=== PATIENT | female | born 1935 | race Caucasian/White ===

== ENCOUNTER 2018-09-13 09:02 | Inpatient (IN) | payer MEDICARE, BC ==
[2018-09-06 15:45] LABS: BASOPHILS # (AUTO) 0.1 X10'3 (0-0.2); BASOPHILS % (AUTO) 0.8 % (0-1); EOSINOPHILS # (AUTO) 0.3 X10'3 (0-0.9); EOSINOPHILS % (AUTO) 4.1 % (0-6); LYMPHOCYTES # (AUTO) 1.6 X10'3 (1.1-4.8); LYMPHOCYTES % (AUTO) 23.7 % (21-51); MEAN CORPUSCULAR HEMOGLOBIN 27.8 PG (27.0-31.0); MEAN CORPUSCULAR VOLUME 84.1 FL (78-98); MEAN PLATELET VOLUME 9.2 FL (7.4-10.4); MONOCYTES # (AUTO) 0.8 X10'3 (0-0.9); NEUTROPHILS # (AUTO) 3.9 X10'3 (1.8-7.7); NEUTROPHILS % (AUTO) 59.4 % (42-75); PRE OP HEMATOCRIT 24.6 % (35.0-45.0); PRE OP PLATELET COUNT 295 X10'3 (140-440); RED BLOOD COUNT 2.93 X10'6 (4.20-5.60)
[2018-09-06 15:50] LABS: PRE OP HEMOGLOBIN 8.1 g/dL (12.0-16.0)
[2018-09-06 15:52] LABS: CLARITY,URINE CLEAR (Clear); COLOR,URINE YELLOW (Yellow); GLUCOSE, URINE NEGATIVE (Neg); KETONES,URINE NEGATIVE (Neg); LEUKOCYTE ESTERASE ,URINE NEGATIVE (Neg); NITRITES, URINE NEGATIVE (Neg); OCCULT BLOOD,URINE NEGATIVE (Neg); PH,URINE 5.5 (4.8-8.0); PROTEIN,URINE NEGATIVE (Neg); UROBILINOGEN,URINE 0.2 E.U/dL (0.2-1.0)
[2018-09-06 15:55] LABS: UA COLLECTION TYPE CLN CATCH MIDSTREAM
[2018-09-06 15:59] LABS: ALBUMIN 3.2 G/DL (3.4-5.0); ALBUMIN/GLOBULIN RATIO 0.8 (1.1-1.5); ALKALINE PHOSPHATASE 138 IU/L (46-116); BLOOD UREA NITROGEN 32 MG/DL (7-18); BUN/CREATININE RATIO 34.4 (6.6-38.0); CALCIUM 9.2 MG/DL (8.5-10.1); CHLORIDE 96 MMOL/L (99-107); CREATININE 0.93 MG/DL (0.40-0.90); PRE OP ALT 27 U/L (30-65); PRE OP ANION GAP 5 (8-16); PRE OP AST 22 U/L (10-37); PRE OP BILIRUB, TOTAL 0.2 MG/DL (0.0-1.0); PRE OP GLUCOSE 107 MG/DL (70-104); PRE OP POTASSIUM 4.5 MMOL/L (3.4-5.1); TOTAL CARBON DIOXIDE 29.5 MMOL/L (24-32); TOTAL PROTEIN 7.2 G/DL (6.4-8.2); eGFR 58 ML/MIN
[2018-09-06 16:10] LABS: PRE OP SODIUM 130 MMOL/L (135-145)
[2018-09-06 16:11] LABS: PRE OP INR 1.1 INR; PRE OP PROTIME 11.3 SECONDS (9.0-12.0)
[~2018-09-13] VITALS: Ht 147.3 cm; Wt 55.8 kg
[2018-09-13] VITALS (18 sets, daily range): BP systolic 114–161; BP diastolic 44–95
[~2018-09-13 09:02] MED LIST: ALBU2.5V12 NEB; ALBU8.5H8 IH; APIX5TAB3 PO; ATOR40TA PO; BUDE90AE IH; BUM1T PO; BUSP5TAB3 PO; CALC-216 PO; CARV6.253 PO; CLA10T PO; COLE1TAB2 PO; DOCUMENT DATE & TIME OF BETA-BLOCKER PO ONE; ESOM40CA PO; LISI40TA4 PO; MULT1TAB74 PO; POTA20TA19 PO; TRAM50TA2 PO; VIT1CAPS9 PO; VITA100D6 PO; VITC500T PO; ZOLP10TA5 PO; albuterol 2.5 MG/3 ML nebule NEB ONE; cefotetan 2gm/isosm dext IVPB 50 ML IV ONE; famotidine 20mg tablet PO ONE
[2018-09-13] MEDS: ringers solution, lacted 1,000 ML IV SCH ×2 (09:15→14:32)
[2018-09-13 09:36] LABS: ISTAT CREATININE 0.9 mg/dL (0.6-1.1); ISTAT HGB 8.8 g/dl (12.0-16.0); ISTAT IONIZED CALCIUM 1.22 mmol/L (1.03-1.32); ISTAT K 4.5 mmol/L (3.5-5.1); POC BUN/CREATININE RATIO 26.7 (6.6-38.0)
[2018-09-13] MEDS ORDERED: BUPIVAcaine/PF 2.5mg/ml (0.25%) 10ml vial ONE (10:46)
[2018-09-13] MEDS ORDERED: fentaNYL/PF 50MCG/1 ML 2ML syringe ONE ×2 (11:02)
[2018-09-13] MEDS ORDERED: midazolam 2 mg/2 ml injection ONE (11:02)
[2018-09-13] MEDS ORDERED: ringers solution, lacted 1,000 ML IV SCH (11:46)
[2018-09-13] MEDS ORDERED: proCHLORperazine 10 MG/2 ml inj IV PRN (11:50)
[2018-09-13] MEDS ORDERED: ondansetron/PF 4mg/2ml inj IV PRN (11:50)
[2018-09-13] MEDS ORDERED: meperidine/PF 25mg/ml syringe IV PRN ×2 (11:50)
[2018-09-13] MEDS ORDERED: morphine 4 MG/ML inj SYRINge IV PRN ×2 (11:50)
[2018-09-13] MEDS ORDERED: neostigmine methylsulfate 1 MG/ML 10ml vial ONE (11:56)
[2018-09-13] MEDS ORDERED: rocuronium 10mg/ml inj IV ONE (11:56)
[2018-09-13] MEDS ORDERED: propofol inj 20 ML IV ONE (11:57)
[2018-09-13] MEDS ORDERED: glycopyrrolate 0.2mg/ml inj ONE (11:57)
[2018-09-13] MEDS: meperidine/PF 25mg/ml syringe IV PRN ×3 (12:16→12:50)
[2018-09-13] MEDS ORDERED: acetaminophen 1,000mg/100ml IV 100 ML IV ONE (12:20)
--- NOTE | 2018-09-13 12:20 | NUR ---
Received from OR via BED , accompanied by Anesthesiologist DR CALVILLO and report given by Anesthesiolgist. PATIENT WAKING UP, C/O PAIN SEE EMAR, V/S WNL, NEUROVASCULAR CHECKS INTACT, 20G PIV RUE, SCD ON, 4 BANDAIDS TO LAP SIGHTS OF ABDOMEN CDI.
[2018-09-13] MEDS ORDERED: albuterol 2.5 MG/3 ML nebule NEB PRN (13:00)
--- NOTE | 2018-09-13 13:20 | NUR ---
PATIENT A&OX4, C/O PAIN AT TIMES SEE EMAR- CURRENTLY SAYS IT IS WELL CONTROLLED, V/S WNL, NEUROVASCULAR CHECKS INTACT, 20G PIV RUE, SCD ON, 4 BANDAIDS TO LAP SIGHTS OF ABDOMEN CDI. PATIENT TAKEN TO SURGICAL WITH ALL BELONGINGS AND HOOKED UP TO MONITORS IN ROOM AND REPORT GIVEN TO RN WHO HAS TAKEN OVER PATIENT CARE.
[2018-09-13] MEDS: normal saline 1000ml 1,000 ML IV SCH (14:37)
[2018-09-13] MEDS: HYDROcodone/acetaminophen 10/325mg tab PO PRN (16:04)
[2018-09-13] MEDS: busPIRone 5mg tablet PO SCH ×2 (17:00→21:40)
[2018-09-13] MEDS: traMADol 50MG tablet PO SCH ×2 (17:00→21:41)
[2018-09-13] MEDS: apixaban 5mg tablet PO SCH (19:41)
[2018-09-13] MEDS: COLESTIPOL PO SCH (19:42)
[2018-09-13] MEDS: calcium carbonate/vitamin D3 tablet PO SCH (19:42)
[2018-09-13] MEDS: ascorbic acid 500mg tablet PO SCH (19:42)
[2018-09-13] MEDS: carvedilol 6.25mg tablet PO SCH (19:43)
[2018-09-13] MEDS: albuterol 2.5 MG/3 ML nebule NEB SCH (20:25)
[2018-09-13] MEDS: budesonide 0.5mg/2ml UD nebule IH SCH (20:25)
[2018-09-13] MEDS: beta-carotene(A) w/C & E + minerals tab PO SCH (21:38)
[2018-09-13] MEDS: potassium chloride 10mEq ER tablet PO SCH (21:40)
[2018-09-13] MEDS: atorvastatin 20mg tablet PO SCH (21:40)
[2018-09-13] MEDS: bumetanide 1mg tablet PO SCH (21:53)
--- NOTE | 2018-09-13 22:00 | NUR ---
Dr. Bernard called. pt c/o of pain and retentions. pt tried using BSC and couldn't go. pt walked and then tried using the private bathroom due to "private bladder." bladder scanned pt with volume 390mL. orders given. will continue to monitor.
[2018-09-14] VITALS: BP 106/43
[2018-09-14] MEDS: HYDROcodone/acetaminophen 10/325mg tab PO PRN ×3 (02:50→17:33)
[2018-09-14] MEDS: ondansetron/PF 4mg/2ml inj IV PRN (02:52)
--- NOTE | 2018-09-14 05:23 | NUR ---
bladder scan showed 238mL. pt does not complain of any discomfort. will continue to monitor.
--- NOTE | 2018-09-14 06:00 | NUR ---
pct got 600 mL on the bladder scanner after trying to get the pt to void on the BSC. straight cath pt and got 200mL. did a bladder scan after the straight cath and there was 100mL left in the bladder
--- NOTE | 2018-09-14 06:30 | NUR ---
Problems reprioritized. Patient report given, questions answered & plan of care reviewed with SERAFIN diaz.
[2018-09-14 07:00] VITALS: BP_SYST 110; BP_SYST 123; BP_DIAS 50; BP_DIAS 71
[2018-09-14] MEDS: budesonide 0.5mg/2ml UD nebule IH SCH ×2 (07:27→20:11)
[2018-09-14] MEDS: albuterol 2.5 MG/3 ML nebule NEB SCH ×2 (07:27→20:11)
[2018-09-14] MEDS: vitamin E 400 unit capsule PO SCH (08:00)
[2018-09-14] MEDS: beta-carotene(A) w/C & E + minerals tab PO SCH ×2 (08:00→19:57)
[2018-09-14] MEDS: COLESTIPOL PO SCH ×2 (08:00→20:00)
[2018-09-14] MEDS: lisinopril 20mg tablet PO SCH (08:00)
[2018-09-14] MEDS: apixaban 5mg tablet PO SCH ×2 (08:25→19:57)
[2018-09-14] MEDS: pantoprazole 40mg Tablet.DR PO SCH (08:26)
[2018-09-14] MEDS: traMADol 50MG tablet PO SCH ×4 (08:26→21:00)
[2018-09-14] MEDS: ascorbic acid 500mg tablet PO SCH ×2 (08:26→19:57)
[2018-09-14] MEDS: calcium carbonate/vitamin D3 tablet PO SCH ×2 (08:26→19:57)
[2018-09-14] MEDS: bumetanide 1mg tablet PO SCH ×3 (08:26→20:39)
[2018-09-14] MEDS: carvedilol 6.25mg tablet PO SCH ×2 (08:26→19:57)
[2018-09-14] MEDS: multivitamins, therapeutics tablet PO SCH (08:26)
[2018-09-14] MEDS: loratadine 10mg tablet PO SCH (08:26)
[2018-09-14] MEDS: potassium chloride 10mEq ER tablet PO SCH ×3 (08:26→20:35)
[2018-09-14] MEDS: busPIRone 5mg tablet PO SCH ×4 (08:26→20:35)
[2018-09-14] MEDS: normal saline 1000ml 1,000 ML IV SCH (08:35)
[2018-09-14 11:00] VITALS: BP 120/60
--- NOTE | 2018-09-14 17:12 | NUR ---
SPOKE WITH DR AVERY RE: PT UNABLE TO VOID TODAY, BLADDER SCAN SHOWS 125 IN, TRIED 2 DIFFERENT SCANNERS PT STATES THAT SHE BELIEVES THAT IT IS WRONG. PT ALSO UNABLE TO PASS GAS AT THIS TIME, VERY DISTENDED AND PAINFUL. GOT ORDER TO CHANGE IV FLUIDS AND STRAIGHT CATH > 300.
[2018-09-14 18:00] VITALS: BP 120/62
--- NOTE | 2018-09-14 18:14 | NUR ---
Problems reprioritized. Patient report given, questions answered & plan of care reviewed with NATE SOUSA.
--- NOTE | 2018-09-14 18:35 | NUR ---
Patient in room [facility]. I have received report from Hanna SOUSA and had the opportunity to ask questions and assume patient care.
[2018-09-14] MEDS: potassium CL 20mEq in D5-1/2NS 1,000 ML IV SCH (19:33)
[2018-09-14] MEDS: atorvastatin 20mg tablet PO SCH (20:35)
[2018-09-14] MEDS: zolpidem 5mg tablet PO PRN (20:40)
[2018-09-15] VITALS: BP 128/50
[2018-09-15] MEDS: HYDROcodone/acetaminophen 10/325mg tab PO PRN ×2 (03:47→10:04)
--- NOTE | 2018-09-15 05:59 | NUR ---
Problems reprioritized. Patient report given, questions answered & plan of care reviewed with CINTIA RN.
--- NOTE | 2018-09-15 06:20 | NUR ---
Patient in room [facility]. I have received report from MERRY Vazquez and had the opportunity to ask questions and assume patient care.
[2018-09-15] MEDS: potassium CL 20mEq in D5-1/2NS 1,000 ML IV SCH ×2 (06:52→07:40)
--- NOTE | 2018-09-15 06:53 | NUR ---
Med reassessments not completed on 09/14 day shift & 09/14 noc shift, therefore documented not done.
[2018-09-15 07:00] VITALS: BP 108/56
[2018-09-15] MEDS: albuterol 2.5 MG/3 ML nebule NEB SCH ×2 (07:30→21:37)
[2018-09-15] MEDS: budesonide 0.5mg/2ml UD nebule IH SCH ×2 (07:32→21:37)
[2018-09-15] MEDS: multivitamins, therapeutics tablet PO SCH (07:40)
[2018-09-15] MEDS: calcium carbonate/vitamin D3 tablet PO SCH ×2 (07:41→20:34)
[2018-09-15] MEDS: apixaban 5mg tablet PO SCH ×2 (07:41→20:36)
[2018-09-15] MEDS: busPIRone 5mg tablet PO SCH ×4 (07:41→20:35)
[2018-09-15] MEDS: bumetanide 1mg tablet PO SCH ×3 (07:42→20:35)
[2018-09-15] MEDS: potassium chloride 10mEq ER tablet PO SCH ×3 (07:42→20:34)
[2018-09-15] MEDS: loratadine 10mg tablet PO SCH (07:42)
[2018-09-15] MEDS: vitamin E 400 unit capsule PO SCH (07:42)
[2018-09-15] MEDS: ascorbic acid 500mg tablet PO SCH ×2 (07:42→20:36)
[2018-09-15] MEDS: beta-carotene(A) w/C & E + minerals tab PO SCH ×2 (07:42→20:35)
[2018-09-15] MEDS: pantoprazole 40mg Tablet.DR PO SCH (07:42)
[2018-09-15] MEDS: traMADol 50MG tablet PO SCH ×4 (07:44→20:35)
[2018-09-15] MEDS: COLESTIPOL PO SCH ×2 (07:45→20:00)
[2018-09-15] MEDS: carvedilol 6.25mg tablet PO SCH ×2 (07:46→20:34)
[2018-09-15] MEDS: lisinopril 20mg tablet PO SCH (07:47)
[2018-09-15 11:00] VITALS: BP 105/42
[2018-09-15 11:29] LABS: BASOPHILS % (AUTO) 0.2 % (0-1); EOSINOPHILS # (AUTO) 0.1 X10'3 (0-0.9); EOSINOPHILS % (AUTO) 0.8 % (0-6); LYMPHOCYTES % (AUTO) 7.6 % (21-51); MEAN CORPUSCULAR HEMOGLOBIN 27.3 PG (27.0-31.0); MEAN CORPUSCULAR HGB CONC 32.9 g/dL (33.0-36.5); MEAN PLATELET VOLUME 8.4 FL (7.4-10.4); MONOCYTES # (AUTO) 1.2 X10'3 (0-0.9); MONOCYTES % (AUTO) 9.4 % (2-12); NEUTROPHILS # (AUTO) 10.6 X10'3 (1.8-7.7); PLATELET COUNT 308 X10'3 (140-440); RED BLOOD COUNT 2.49 X10'6 (4.20-5.60); RED CELL DISTRIBUTION WIDTH 14.9 % (11.5-14.5)
[2018-09-15 11:34] LABS: HEMATOCRIT 20.7 % (35.0-45.0); HEMOGLOBIN 6.8 g/dl (12.0-16.0)
[2018-09-15 11:43] LABS: ALANINE AMINOTRANSFERASE 48 U/L (12-78); ALBUMIN 2.9 G/DL (3.4-5.0); ALBUMIN/GLOBULIN RATIO 0.7 (1.1-1.5); ALKALINE PHOSPHATASE 158 IU/L (46-116); ANION GAP 5 (8-16); ASPARTATE AMINO TRANSFERASE 38 U/L (10-37); BILIRUBIN,TOTAL 0.5 MG/DL (0.1-1.0); BLOOD UREA NITROGEN 29 MG/DL (7-18); BUN/CREATININE RATIO 20.1 (6.6-38.0); CALCIUM 9.6 MG/DL (8.5-10.1); CHLORIDE 91 MMOL/L (99-107); CREATININE 1.44 MG/DL (0.40-0.90); GLUCOSE 107 MG/DL (70-104); POTASSIUM 4.8 MMOL/L (3.5-5.1); SODIUM 122 MMOL/L (135-145); TOTAL CARBON DIOXIDE 26.3 MMOL/L (24-32); TOTAL PROTEIN 6.9 G/DL (6.4-8.2); eGFR 35 ML/MIN
[2018-09-15] MEDS: normal saline 1000ml 1,000 ML IV SCH (13:42)
[2018-09-15] MEDS: ondansetron/PF 4mg/2ml inj IV PRN ×2 (14:43→21:26)
--- NOTE | 2018-09-15 16:45 | NUR ---
FC inserted w/immediate urine return of 200ml.
[2018-09-15 18:00] VITALS: BP 133/58
--- NOTE | 2018-09-15 18:34 | NUR ---
Patient in room [facility]. I have received report from MERRY Clark and had the opportunity to ask questions and assume patient care.
--- NOTE | 2018-09-15 18:37 | NUR ---
Pt feel SOB and has slight cough. O2 sats at 85% on RA, placed on 2L NC. O2 sats rapidly ayaka to 94%. Bases of lungs diminished. Will continue to monitor.
[2018-09-15] MEDS: atorvastatin 20mg tablet PO SCH (20:35)
[2018-09-15] MEDS: zolpidem 5mg tablet PO PRN (22:31)
[2018-09-16] VITALS (10 sets, daily range): BP systolic 109–142; BP diastolic 50–70
--- NOTE | 2018-09-16 06:05 | NUR ---
Patient in room [facility]. I have received report from MERRY Sawyer and had the opportunity to ask questions and assume patient care.
[2018-09-16 06:25] LABS: BASOPHILS % (AUTO) 0.4 % (0-1); EOSINOPHILS # (AUTO) 0.1 X10'3 (0-0.9); MEAN PLATELET VOLUME 9.5 FL (7.4-10.4); NEUTROPHILS # (AUTO) 9.6 X10'3 (1.8-7.7)
[2018-09-16 06:27] LABS: EOSINOPHILS % (AUTO) 0.8 % (0-6); LYMPHOCYTES # (AUTO) 0.6 X10'3 (1.1-4.8); LYMPHOCYTES % (AUTO) 5.3 % (21-51); MEAN CORPUSCULAR HEMOGLOBIN 26.9 PG (27.0-31.0); MEAN CORPUSCULAR HGB CONC 32.9 g/dL (33.0-36.5); MEAN CORPUSCULAR VOLUME 81.8 FL (78-98); MONOCYTES # (AUTO) 0.8 X10'3 (0-0.9); NEUTROPHILS % (AUTO) 86.5 % (42-75); PLATELET COUNT 281 X10'3 (140-440); RED BLOOD COUNT 2.46 X10'6 (4.20-5.60); RED CELL DISTRIBUTION WIDTH 14.7 % (11.5-14.5); WHITE BLOOD COUNT 11.1 X10'3 (4.5-11.0)
--- NOTE | 2018-09-16 06:29 | NUR ---
Problems reprioritized. Patient report given, questions answered & plan of care reviewed with MERRY Clark.
[2018-09-16 06:30] LABS: ANION GAP 5 (8-16); BLOOD UREA NITROGEN 27 MG/DL (7-18); BUN/CREATININE RATIO 20.9 (6.6-38.0); CHLORIDE 93 MMOL/L (99-107); CREATININE 1.29 MG/DL (0.40-0.90); GLUCOSE 100 MG/DL (70-104); POTASSIUM 4.3 MMOL/L (3.5-5.1); SODIUM 124 MMOL/L (135-145); eGFR 40 ML/MIN
[2018-09-16 06:31] LABS: ALBUMIN 2.6 G/DL (3.4-5.0); CALCIUM 9.2 MG/DL (8.5-10.1)
[2018-09-16 06:41] LABS: HEMATOCRIT 20.1 % (35.0-45.0); HEMOGLOBIN 6.6 g/dl (12.0-16.0)
[2018-09-16 07:31] LABS: NUCLEATED RED BLOOD CELLS 2 /100WBC (0-0); TOTAL CELLS COUNTED 100
[2018-09-16 07:32] LABS: PLATELET ESTIMATE NORMAL; TOXIC VACUOLATION 1+
[2018-09-16] MEDS: COLESTIPOL PO SCH (08:00)
[2018-09-16] MEDS: potassium chloride 10mEq ER tablet PO SCH ×4 (08:00→20:19)
[2018-09-16] MEDS: carvedilol 6.25mg tablet PO SCH ×2 (08:00→20:23)
[2018-09-16] MEDS: lisinopril 20mg tablet PO SCH (08:00)
[2018-09-16] MEDS: normal saline 1000ml 1,000 ML IV SCH (08:05)
[2018-09-16] MEDS: beta-carotene(A) w/C & E + minerals tab PO SCH ×2 (08:19→20:20)
[2018-09-16] MEDS: pantoprazole 40mg Tablet.DR PO SCH (08:19)
[2018-09-16] MEDS: multivitamins, therapeutics tablet PO SCH (08:20)
[2018-09-16] MEDS: busPIRone 5mg tablet PO SCH ×4 (08:20→20:23)
[2018-09-16] MEDS: calcium carbonate/vitamin D3 tablet PO SCH ×2 (08:20→20:20)
[2018-09-16] MEDS: ascorbic acid 500mg tablet PO SCH ×2 (08:20→20:23)
[2018-09-16] MEDS: apixaban 5mg tablet PO SCH ×2 (08:20→20:23)
[2018-09-16] MEDS: vitamin E 400 unit capsule PO SCH (08:20)
[2018-09-16] MEDS: traMADol 50MG tablet PO SCH ×4 (08:21→21:25)
[2018-09-16] MEDS: loratadine 10mg tablet PO SCH (08:22)
[2018-09-16] MEDS: bumetanide 1mg tablet PO SCH ×3 (08:28→21:00)
[2018-09-16] MEDS: albuterol 2.5 MG/3 ML nebule NEB SCH ×3 (08:38→20:44)
[2018-09-16] MEDS: budesonide 0.5mg/2ml UD nebule IH SCH ×2 (08:38→20:44)
[2018-09-16] MEDS: ondansetron/PF 4mg/2ml inj IV PRN ×2 (09:12→20:57)
--- NOTE | 2018-09-16 09:16 | NUR ---
Attempted several times to get a hold of Dr Joshua via cell phone since received message of critical H&H @ about 0700. Still unable to contact.
[2018-09-16] MEDS: HYDROcodone/acetaminophen 10/325mg tab PO PRN ×2 (11:56→18:50)
[2018-09-16] MEDS: atorvastatin 20mg tablet PO SCH (20:21)
[2018-09-16 20:57] LABS: HEMATOCRIT 23.2 % (35.0-45.0); HEMOGLOBIN 7.7 g/dl (12.0-16.0); MEAN CORPUSCULAR HEMOGLOBIN 27.8 PG (27.0-31.0); MEAN CORPUSCULAR HGB CONC 33.4 g/dL (33.0-36.5); MEAN CORPUSCULAR VOLUME 83.4 FL (78-98); PLATELET COUNT 254 X10'3 (140-440); RED BLOOD COUNT 2.78 X10'6 (4.20-5.60); RED CELL DISTRIBUTION WIDTH 15.3 % (11.5-14.5); WHITE BLOOD COUNT 7.6 X10'3 (4.5-11.0)
[2018-09-16] MEDS: zolpidem 5mg tablet PO PRN (21:24)
[2018-09-17] VITALS (11 sets, daily range): BP systolic 118–149; BP diastolic 42–88
[2018-09-17] MEDS: normal saline 1000ml 1,000 ML IV SCH (04:45)
[2018-09-17] MEDS: HYDROcodone/acetaminophen 10/325mg tab PO PRN ×2 (04:45→15:26)
[2018-09-17 05:56] LABS: BASOPHILS % (AUTO) 0.4 % (0-1); EOSINOPHILS # (AUTO) 0.2 X10'3 (0-0.9); EOSINOPHILS % (AUTO) 3.4 % (0-6); LYMPHOCYTES % (AUTO) 16.7 % (21-51); MEAN CORPUSCULAR HEMOGLOBIN 28.4 PG (27.0-31.0); MEAN CORPUSCULAR HGB CONC 33.9 g/dL (33.0-36.5); MEAN CORPUSCULAR VOLUME 83.8 FL (78-98); MEAN PLATELET VOLUME 8.9 FL (7.4-10.4); MONOCYTES # (AUTO) 0.8 X10'3 (0-0.9); MONOCYTES % (AUTO) 14.3 % (2-12); NEUTROPHILS # (AUTO) 3.8 X10'3 (1.8-7.7); NEUTROPHILS % (AUTO) 65.2 % (42-75); PLATELET COUNT 225 X10'3 (140-440); RED BLOOD COUNT 2.45 X10'6 (4.20-5.60); RED CELL DISTRIBUTION WIDTH 15.2 % (11.5-14.5); WHITE BLOOD COUNT 5.8 X10'3 (4.5-11.0)
[2018-09-17 06:16] LABS: HEMATOCRIT 20.6 % (35.0-45.0)
--- NOTE | 2018-09-17 06:30 | NUR ---
Patient in room [facility]. I have received report from MERRY Sawyer and had the opportunity to ask questions and assume patient care.
--- NOTE | 2018-09-17 06:41 | NUR ---
Problems reprioritized. Patient report given, questions answered & plan of care reviewed with MERRY Huerta.
[2018-09-17] MEDS: pantoprazole 40mg Tablet.DR PO SCH (07:52)
[2018-09-17] MEDS: bumetanide 1mg tablet PO SCH ×3 (07:53→21:41)
[2018-09-17] MEDS: busPIRone 5mg tablet PO SCH ×4 (07:54→20:26)
[2018-09-17] MEDS: loratadine 10mg tablet PO SCH (07:55)
[2018-09-17] MEDS: budesonide 0.5mg/2ml UD nebule IH SCH ×2 (07:56→20:45)
[2018-09-17] MEDS: carvedilol 6.25mg tablet PO SCH ×2 (07:56→21:39)
[2018-09-17] MEDS: apixaban 5mg tablet PO SCH ×2 (07:56→21:39)
[2018-09-17] MEDS: albuterol 2.5 MG/3 ML nebule NEB SCH ×2 (07:57→20:45)
[2018-09-17] MEDS: multivitamins, therapeutics tablet PO SCH (07:57)
[2018-09-17] MEDS: beta-carotene(A) w/C & E + minerals tab PO SCH ×2 (07:57→21:38)
[2018-09-17] MEDS: lisinopril 20mg tablet PO SCH (07:58)
[2018-09-17] MEDS: potassium chloride 10mEq ER tablet PO SCH ×3 (07:58→21:41)
[2018-09-17] MEDS: calcium carbonate/vitamin D3 tablet PO SCH ×2 (08:00→21:41)
[2018-09-17] MEDS: traMADol 50MG tablet PO SCH ×4 (08:00→21:38)
[2018-09-17] MEDS: vitamin E 400 unit capsule PO SCH (08:00)
[2018-09-17] MEDS: ascorbic acid 500mg tablet PO SCH ×2 (08:01→21:39)
--- NOTE | 2018-09-17 11:47 | NUR ---
Patient states her bladder feels full and she is very uncomfortable. Bladder scan done, and it showed she had between 750 and 765mL in her bladder. Order obtained to place uribe. Student nurse placed 16-yi uribe catheter using sterile technique with me at bedside. Patient tolerated well.
--- NOTE | 2018-09-17 11:55 | NUR ---
Student documentation: I have reviewed and agree with all interventions, assessments performed and documented by Anuja Frias, associate director of nursing.
--- NOTE | 2018-09-17 11:55 | NUR ---
Student Medication Administration: For this medication-pass time frame, all medication were reviewed, dispensed, administered and documented per hospital policy by Anuja Padilla, nursing staff development coordinator.
--- NOTE | 2018-09-17 12:18 | NUR ---
Problems reprioritized. Patient report given, questions answered & plan of care reviewed with Dahlia student RN.
--- NOTE | 2018-09-17 12:19 | NUR ---
Patient in room [facility]. I have received report from Anuja, Student Nurse and had the opportunity to ask questions and assume patient care.
[2018-09-17 13:00] LABS: HEMATOCRIT 26.2 % (35.0-45.0); HEMOGLOBIN 8.9 g/dl (12.0-16.0); MEAN CORPUSCULAR HEMOGLOBIN 28.5 PG (27.0-31.0); MEAN CORPUSCULAR HGB CONC 33.8 g/dL (33.0-36.5); MEAN CORPUSCULAR VOLUME 84.2 FL (78-98); MEAN PLATELET VOLUME 8.9 FL (7.4-10.4); PLATELET COUNT 269 X10'3 (140-440); RED BLOOD COUNT 3.12 X10'6 (4.20-5.60); RED CELL DISTRIBUTION WIDTH 15.4 % (11.5-14.5); WHITE BLOOD COUNT 6.5 X10'3 (4.5-11.0)
--- NOTE | 2018-09-17 13:09 | NUR ---
Dr Joshua rounded. He stated the pt is refusing rehab so will need to go home if enough help is available for safety. Pt will need FC for 2 more days. Primary RN, Dulce, notified.
--- NOTE | 2018-09-17 17:01 | NUR ---
Problems reprioritized. Patient report given, questions answered & plan of care reviewed with MERRY Cardona.
--- NOTE | 2018-09-17 17:11 | NUR ---
Patients IV is today, she is refusing a new IV start. Stated she will let staff put in a new IV tomorrow morning.
--- NOTE | 2018-09-17 18:33 | NUR ---
Patient in room [facility]. I have received report from Deanna SOUSA and had the opportunity to ask questions and assume patient care.
[2018-09-17] MEDS: zolpidem 5mg tablet PO PRN (21:37)
[2018-09-17] MEDS: atorvastatin 20mg tablet PO SCH (21:41)
[2018-09-18] VITALS: BP 143/56
[2018-09-18] MEDS: normal saline 1000ml 1,000 ML IV SCH ×2 (00:05→05:32)
--- NOTE | 2018-09-18 06:24 | NUR ---
Problems reprioritized. Patient report given, questions answered & plan of care reviewed with Deanna SOUSA.
[2018-09-18 07:15] VITALS: BP 127/46
[2018-09-18] MEDS: carvedilol 6.25mg tablet PO SCH (07:45)
[2018-09-18] MEDS: loratadine 10mg tablet PO SCH (07:45)
[2018-09-18] MEDS: traMADol 50MG tablet PO SCH ×3 (07:45→16:27)
[2018-09-18] MEDS: vitamin E 400 unit capsule PO SCH (07:45)
[2018-09-18] MEDS: multivitamins, therapeutics tablet PO SCH (07:46)
[2018-09-18] MEDS: calcium carbonate/vitamin D3 tablet PO SCH (07:46)
[2018-09-18] MEDS: potassium chloride 10mEq ER tablet PO SCH ×2 (07:46→12:27)
[2018-09-18] MEDS: ascorbic acid 500mg tablet PO SCH (07:46)
[2018-09-18] MEDS: lisinopril 20mg tablet PO SCH (07:47)
[2018-09-18] MEDS: bumetanide 1mg tablet PO SCH ×2 (07:48→12:27)
[2018-09-18] MEDS: apixaban 5mg tablet PO SCH (07:48)
[2018-09-18] MEDS: beta-carotene(A) w/C & E + minerals tab PO SCH (07:48)
[2018-09-18] MEDS: busPIRone 5mg tablet PO SCH ×3 (07:48→16:25)
[2018-09-18] MEDS: pantoprazole 40mg Tablet.DR PO SCH (07:52)
[2018-09-18] MEDS: albuterol 2.5 MG/3 ML nebule NEB SCH (08:10)
[2018-09-18] MEDS: budesonide 0.5mg/2ml UD nebule IH SCH (08:10)
[2018-09-18 08:32] VITALS: BP 127/46
[2018-09-18 11:05] VITALS: BP 142/78
[2018-09-18] MEDS: HYDROcodone/acetaminophen 10/325mg tab PO PRN (11:22)
[2018-09-18 11:44] VITALS: BP 142/78
--- NOTE | 2018-09-18 16:01 | NUR ---
PATIENT REPORT CALLED TO LORENZO AND GIVEN TO IZABEL. PREPARING PATIENT FOR 1630 DISCHARGE.
--- NOTE | 2018-09-18 16:28 | NUR ---
Patient stable and appropriate for transfer to [facility]. IV removed, Christopher catheter removed. Report called to receiving floor. Annabel cargo picking up patient. All belongings taken from room.
== END 2018-09-18 16:20 | DRG 988 ==
LOC: PAS 09:02 → SUR 3N 12:34
PROVIDERS: ADMIT Surgery; ATTEND Surgery
PROC: 0FT44ZZ Resection of Gallbladder, Percutaneous Endoscopic Approach (ICD-10-PCS; principal; 2018-09-13 11:12)
PROC: 30233N1 Transfusion of Nonautologous Red Blood Cells into Peripheral Vein, Percutaneous Approach (ICD-10-PCS; 2018-09-16)
PROC: 30233N1 Transfusion of Nonautologous Red Blood Cells into Peripheral Vein, Percutaneous Approach (ICD-10-PCS; 2018-09-17)
DX: D62 Acute posthemorrhagic anemia (principal); K80.10 Calculus of gallbladder with chronic cholecystitis without obstruction; I69.354 Hemiplegia and hemiparesis following cerebral infarction affecting left non-dominant side; R33.9 Retention of urine, unspecified; K66.0 Peritoneal adhesions (postprocedural) (postinfection); M19.90 Unspecified osteoarthritis, unspecified site; J44.9 Chronic obstructive pulmonary disease, unspecified; G47.30 Sleep apnea, unspecified; I11.0 Hypertensive heart disease with heart failure; I50.9 Heart failure, unspecified; E78.5 Hyperlipidemia, unspecified; I48.91 Unspecified atrial fibrillation; K21.0 Gastro-esophageal reflux disease with esophagitis; F41.9 Anxiety disorder, unspecified; Z90.710 Acquired absence of both cervix and uterus; Z82.49 Family history of ischemic heart disease and other diseases of the circulatory system; Z88.2 Allergy status to sulfonamides; Z88.8 Allergy status to other drugs, medicaments and biological substances; Z87.891 Personal history of nicotine dependence; Z79.899 Other long term (current) drug therapy
CPT/HCPCS: 36415; 71046; 80047; 80048; 80053; 81003; 85025; 85027; 85610; 85730; 86885; 86900; 86901; 86920; 93005; 94640; 94760; 97110; 97116; 97161; 97530; A7000; G0378; J0131; J2175; J2250; J2270; J2405; J2704; J2710; J3010; J3490; J7030; J7120; J7626; P9016

== ENCOUNTER 2020-06-15 07:11 | Day surgery (SDC) | payer MEDICARE, BC ==
[2020-06-08 15:52] LABS: BASOPHILS % (AUTO) 0.4 % (0-1); EOSINOPHILS # (AUTO) 0.4 X10'3 (0-0.9); EOSINOPHILS % (AUTO) 5.1 % (0-6); LYMPHOCYTES # (AUTO) 1.2 X10'3 (1.1-4.8); LYMPHOCYTES % (AUTO) 17.2 % (21-51); MEAN CORPUSCULAR HEMOGLOBIN 33.8 PG (27.0-31.0); MEAN CORPUSCULAR HGB CONC 33.4 g/dL (33.0-36.5); MEAN CORPUSCULAR VOLUME 101.1 FL (78-98); MEAN PLATELET VOLUME 9.6 FL (7.4-10.4); MONOCYTES # (AUTO) 0.6 X10'3 (0-0.9); MONOCYTES % (AUTO) 8.5 % (2-12); NEUTROPHILS # (AUTO) 4.9 X10'3 (1.8-7.7); NEUTROPHILS % (AUTO) 68.8 % (42-75); PRE OP HEMATOCRIT 32.7 % (35.0-45.0); PRE OP PLATELET COUNT 194 X10'3 (140-440); RED BLOOD COUNT 3.24 X10'6 (4.20-5.60); RED CELL DISTRIBUTION WIDTH 12.8 % (11.5-14.5)
[2020-06-08 15:55] LABS: PRE OP HEMOGLOBIN 10.9 g/dL (12.0-16.0)
[2020-06-08 16:04] LABS: ALBUMIN 3.6 G/DL (3.4-5.0); ALBUMIN/GLOBULIN RATIO 0.9 (1.1-1.5); ALKALINE PHOSPHATASE 105 IU/L (46-116); BLOOD UREA NITROGEN 62 MG/DL (7-18); BUN/CREATININE RATIO 58.5 (6.6-38.0); CALCIUM 9.4 MG/DL (8.5-10.1); CHLORIDE 102 MMOL/L (99-107); CREATININE 1.06 MG/DL (0.40-0.90); PRE OP ALT 25 U/L (30-65); PRE OP ANION GAP 7 (8-16); PRE OP AST 11 U/L (10-37); PRE OP BILIRUB, TOTAL 0.3 MG/DL (0.0-1.0); PRE OP GLUCOSE 99 MG/DL (70-104); PRE OP POTASSIUM 4.8 MMOL/L (3.4-5.1); PRE OP SODIUM 135 MMOL/L (135-145); TOTAL CARBON DIOXIDE 25.8 MMOL/L (24-32); TOTAL PROTEIN 7.5 G/DL (6.4-8.2); eGFR 50 ML/MIN
[2020-06-15] VITALS (8 sets, daily range): BP systolic 122–143; BP diastolic 50–87
[~2020-06-15] VITALS: Ht 147.3 cm; Wt 49.4 kg
[~2020-06-15 07:11] MED LIST changes: +ALBU2.5V10 IH; -ALBU2.5V12 NEB; +BUSP10TA3 PO; -BUSP5TAB3 PO; +CHOL378P PO; +CHOL400T8 PO; -COLE1TAB2 PO; -ESOM40CA PO; +FLUO-1 PO; +KRIL500C PO; +MULT-620 PO; -MULT1TAB74 PO; +PANT40TA54 PO; -VIT1CAPS9 PO; -VITA100D6 PO; +ceFAZolin 2gm in dextrose, iso 50 ML IV ONE; -cefotetan 2gm/isosm dext IVPB 50 ML IV ONE; +ringers solution, lacted 1,000 ML IV SCH
[2020-06-15] MEDS ORDERED: BUPIVAcaine/PF 2.5 mg/ml (0.25%) 30ml vial ONE (08:47)
[2020-06-15] MEDS ORDERED: LIDOcaine 1% 30ml preserv. free vial ONE (08:47)
[2020-06-15] MEDS ORDERED: HYDROmorphone/PF 0.2 MG/ML SYRINGE IV PRN (09:10)
[2020-06-15] MEDS ORDERED: hydrALAZINE 20mg/ml inj. IV PRN (09:10)
[2020-06-15] MEDS ORDERED: meperidine/PF 25mg/ml syringe IV PRN (09:10)
[2020-06-15] MEDS ORDERED: morphine 2 MG/ML inj. syringe IV PRN (09:10)
[2020-06-15] MEDS ORDERED: ringers solution, lacted 1,000 ML IV SCH (09:10)
[2020-06-15] MEDS ORDERED: proCHLORperazine 10 MG/2 ml inj IV PRN (09:10)
[2020-06-15] MEDS ORDERED: ondansetron/PF 4mg/2ml inj IV PRN (09:10)
[2020-06-15] MEDS ORDERED: acetaminophen 1,000mg/100ml IV 100 ML IV PRN (09:10)
[2020-06-15] MEDS ORDERED: labetalol 20mg/4ml (5mg/ml) syringe IV PRN (09:10)
[2020-06-15] MEDS ORDERED: fentaNYL/PF 50MCG/1 ML 2ML syringe ONE (09:15)
[2020-06-15] MEDS ORDERED: midazolam 2 mg/2 ml injection ONE (09:16)
[2020-06-15] MEDS ORDERED: propofol inj 20 ML IV ONE (10:37)
[2020-06-15] MEDS ORDERED: LIDOcaine 2% (20mg/ml) 5ml vial ONE (10:37)
[2020-06-15] MEDS ORDERED: dexamethasone sod phosphate 4mg/ml inj. ONE (10:37)
[2020-06-15] MEDS ORDERED: rocuronium 10mg/ml inj IV ONE (10:37)
[2020-06-15] MEDS ORDERED: ondansetron/PF 4mg/2ml inj ONE (10:37)
[2020-06-15] MEDS ORDERED: glycopyrrolate 0.2mg/ml inj ONE (10:40)
[2020-06-15] MEDS ORDERED: neostigmine methylsulfate 1 MG/ML 10ml vial ONE (10:40)
--- NOTE | 2020-06-15 11:00 | NUR ---
ADMITTED TO PACU FROM OR ACCOMPANIED BY ANESTHESIA. INTIAL PHYSICAL ASSESSMENT DONE AND RECORDED. REPORT RECEIVED FROM ANESTHESIA.
[2020-06-15] MEDS ORDERED: HYDROcodone/acetaminophen 5mg/325mg tablet PO PRN (11:15)
--- NOTE | 2020-06-15 12:30 | NUR ---
DISCHARGE CRITERIA MET, DISCHARGE INSTRUCTIONS GIVEN, DEMONSTRATES VERBAL UNDERSTANDING. DISCHARGED HOME IN GOOD CONDITION.
== END 2020-06-15 12:30 | disposition home or self-care (01) ==
LOC: PAS 07:11
PROVIDERS: ATTEND Surgery
DX: K40.90 Unilateral inguinal hernia, without obstruction or gangrene, not specified as recurrent (principal); Z87.891 Personal history of nicotine dependence; I50.9 Heart failure, unspecified; I48.91 Unspecified atrial fibrillation; I11.0 Hypertensive heart disease with heart failure; Z88.8 Allergy status to other drugs, medicaments and biological substances; Z88.2 Allergy status to sulfonamides; F41.8 Other specified anxiety disorders; Z86.73 Personal history of transient ischemic attack (TIA), and cerebral infarction without residual deficits; K21.9 Gastro-esophageal reflux disease without esophagitis; M19.90 Unspecified osteoarthritis, unspecified site; D64.9 Anemia, unspecified; Z79.899 Other long term (current) drug therapy; Z98.890 Other specified postprocedural states; Z90.710 Acquired absence of both cervix and uterus; Z90.49 Acquired absence of other specified parts of digestive tract; Z98.51 Tubal ligation status; Z82.49 Family history of ischemic heart disease and other diseases of the circulatory system; Z83.3 Family history of diabetes mellitus
CPT/HCPCS: 36415; 49650; 80053; 82948; 85025; 86885; 86900; 86901; 87635; 93005; C1781; J1100; J2001; J2175; J2250; J2405; J2704; J2710; J3010; J3490; J7120; 86870; A4215; A4618

== ENCOUNTER → 2022-04-27 | Day surgery (SDC) | payer MEDICARE, BC ==
[2022-04-26 11:24] LABS: HEMOGLOBIN 10.2 g/dl (12.0-16.0); MEAN PLATELET VOLUME 9.6 FL (7.4-10.4); WHITE BLOOD COUNT 4.4 X10'3 (4.5-11.0)
[2022-04-26 11:26] LABS: BASOPHILS % (AUTO) 0.4 % (0-1); EOSINOPHILS # (AUTO) 0.1 X10'3 (0-0.9); EOSINOPHILS % (AUTO) 2.4 % (0-6); HEMATOCRIT 30.7 % (35.0-45.0); LYMPHOCYTES # (AUTO) 0.7 X10'3 (1.1-4.8); LYMPHOCYTES % (AUTO) 15.5 % (21-51); MEAN CORPUSCULAR HEMOGLOBIN 34.1 PG (27.0-31.0); MEAN CORPUSCULAR HGB CONC 33.2 g/dL (33.0-36.5); MEAN CORPUSCULAR VOLUME 102.9 FL (78-98); MONOCYTES # (AUTO) 0.3 X10'3 (0-0.9); MONOCYTES % (AUTO) 7.9 % (2-12); NEUTROPHILS # (AUTO) 3.3 X10'3 (1.8-7.7); NEUTROPHILS % (AUTO) 73.8 % (42-75); PLATELET COUNT 134 X10'3 (140-440); RED BLOOD COUNT 2.98 X10'6 (4.20-5.60); RED CELL DISTRIBUTION WIDTH 13.7 % (11.5-14.5)
[2022-04-26 11:29] LABS: ALBUMIN 3.4 G/DL (3.4-5.0); ANION GAP 6 (8-16); BLOOD UREA NITROGEN 39 MG/DL (7-18); BUN/CREATININE RATIO 42.4 (6.6-38.0); CALCIUM 9.2 MG/DL (8.5-10.1); CHLORIDE 98 MMOL/L (99-107); CREATININE 0.92 MG/DL (0.40-0.90); GLUCOSE 99 MG/DL (70-104); POTASSIUM 4.7 MMOL/L (3.5-5.1); SODIUM 136 MMOL/L (135-145); TOTAL CARBON DIOXIDE 32.3 MMOL/L (24-32); eGFR 58 ML/MIN
[2022-04-26 11:33] LABS: APTT 26 SECONDS (22-32)
[~2022-04-27] VITALS: Ht 147.3 cm; Wt 47.2 kg
[2022-04-27] VITALS (13 sets, daily range): BP systolic 107–148; BP diastolic 42–67
[~2022-04-27] MED LIST changes: +ALBU8.5H17 IH; -ALBU8.5H8 IH; +APIX2.5T PO; +BETA1TAB20 PO; +BUDE0.5A3 INH; +BUDE3CAP8 PO; -BUDE90AE IH; -CHOL378P PO; +CHOL378P13 PO; +COLE1TAB4 PO; -DOCUMENT DATE & TIME OF BETA-BLOCKER PO ONE; +FENTANYL CITRATE/PF 50 MCG/1 ML VIAL ONE; +GABA-530 PO; +HYDR-3964 PO; +HYDROcodone/acetaminophen 5mg/325mg tablet PO ONE; +LIDO700A47 TOP; +LIDOcaine 1% 30ml preserv. free vial ONE; +LISI40TA13 PO; -LISI40TA4 PO; +LORazepam 0.5 MG tablet PO PRN; +POTA-207 PO; -POTA20TA19 PO; -albuterol 2.5 MG/3 ML nebule NEB ONE; +bumetanide 0.25mg/ml 4ml vial IV ONE; -ceFAZolin 2gm in dextrose, iso 50 ML IV ONE; +diphenhydrAMINE 25mg capsule PO PRN; -famotidine 20mg tablet PO ONE; +heparin 1,000unit/ml 10ml vial 10 ML ONE; +iohexol 350MG/ML 100ml bottle IV ONE; +midazolam 1 mg/ML 2ml injection ONE; +nitroGLYCERIN-Tridil 50MG/D5W 250 ML IV ONE; +normal saline 1,000 ML IV SCH; -ringers solution, lacted 1,000 ML IV SCH; +verapamil 2.5 mg/ml inj IV ONE
--- NOTE | 2022-04-27 09:40 | NUR ---
Christopher cath placed due to pt having femostop in place and being on bedrest for 6 hours, pt states she can't urinate on bed [place]. Christopher inserted without difficulty, clear yellow urine returned.
--- NOTE | 2022-04-27 10:45 | NUR ---
Phoned Dr. Reyes with results of BNP, left message.
--- NOTE | 2022-04-27 11:10 | NUR ---
Dr. Reyes returned call re: elevated BNP, orders received. Will give medication once received from pharmacy.
--- NOTE | 2022-04-27 12:05 | NUR ---
Pt c/ back pain 11/13, pt takes 1 norco 5mg Qday. Sent to pharmacy.
--- NOTE | 2022-04-27 12:15 | NUR ---
Phoned pharmacy re: not receiving Bumex, they are processing order now.
--- NOTE | 2022-04-27 13:00 | NUR ---
Pt resting quietly.
--- NOTE | 2022-04-27 13:10 | NUR ---
Pt O2 sats dropping to 88%, O2 at 2L/min administered. Pt states she uses O2 at home when sleeping.
== END | disposition home or self-care (01) ==
LOC: SSTAY O 05:50
PROVIDERS: ATTEND Internal Medicine Cardiovascular Disease
DX: I34.0 Nonrheumatic mitral (valve) insufficiency (principal); R07.9 Chest pain, unspecified; I48.21 Permanent atrial fibrillation; I11.0 Hypertensive heart disease with heart failure; I50.32 Chronic diastolic (congestive) heart failure; I36.1 Nonrheumatic tricuspid (valve) insufficiency; I65.23 Occlusion and stenosis of bilateral carotid arteries; E78.5 Hyperlipidemia, unspecified; G47.30 Sleep apnea, unspecified; Z79.899 Other long term (current) drug therapy; Z98.890 Other specified postprocedural states
CPT/HCPCS: 36415; 80048; 83880; 85025; 85610; 85730; 93005; 93458; 99152; 99153; C1769; C1894; J1644; J2250; J3010; J3490; J7030; Q0163; Q9967; A4615; A6258; A6402; A6449; C1725